=== PATIENT | male | born 1980 | race Caucasian/White ===

== ENCOUNTER 2017-10-26 07:10 | Emergency (ER) | payer MEDICAID ==
[2017-10-26 07:34] LABS: BASOPHILS 0.1 % (0-2); EOSINOPHILS 0.7 % (0-7); HEMATOCRIT 44.7 % (42.0-54.0); HEMOGLOBIN 15.8 g/dL (13.5-17.5); IMMATURE GRANULOCYTES 0.2 % (0-5); LYMPHOCYTES 27.8 % (15-50); MCH 31.3 pg (26.0-34.0); MCHC 35.3 g/dL (31.0-37.0); MCV 88.7 fL (80.0-100.0); MEAN PLATELET VOLUME 9.6 fL (7.4-10.4); MONOCYTES 8.9 % (2-11); NEUTROPHILS 62.3 % (40-80); PLATELET COUNT 210 10x3/uL (130-400); RBC 5.04 10x6/uL (4.20-6.10); RDW 12.8 % (11.5-14.5); WBC 8.3 10x3/uL (4.8-10.8)
[2017-10-26 07:51] LABS: ALBUMIN 3.7 g/dL (3.4-5.0); ALKALINE PHOSPHATASE 88 U/L (46-116); ALT (SGPT) 23 U/L (10-68); CALC OSMOLALITY 279 mosm/kg (275-300); CALCIUM 8.3 mg/dL (8.5-10.1); CARBON DIOXIDE 27.6 mmol/L (21.0-32.0); CHLORIDE - SERUM 105 mmol/L (98-107); GLUCOSE 105 mg/dL (74-106); POTASSIUM - SERUM 3.8 mmol/L (3.5-5.1); PROTEIN - SERUM 6.8 g/dL (6.4-8.2); SODIUM 141 mmol/L (136-145); UREA NITROGEN 11 mg/dL (7-18); eGFR NON AFRICAN AMERICAN 89 mL/min (90-120)
[2017-10-26 08:13] LABS: C-REACTIVE PROTEIN 0.6 mg/dL (0.0-0.9); CREATINE KINASE 69 UL (21-232); MAGNESIUM - SERUM 1.9 mg/dL (1.8-2.4); TROPONIN-I < 0.017 ng/mL (0.000-0.060)
== END 2017-10-26 10:05 | disposition home or self-care (01) ==
LOC: D.ER 07:10
PROVIDERS: Emergency Medicine
DX: R55 Syncope and collapse (principal); F17.200 Nicotine dependence, unspecified, uncomplicated; R00.1 Bradycardia, unspecified

== ENCOUNTER → 2017-11-07 08:56 | Outpatient (CLI) | payer MEDICAID ==
--- NOTE | ~2017-11-07 | EC ---
PATIENT:AURY MARIE DATE OF SERVICE: 11/07/17 SEX: M MEDICAL RECORD: [id number] DATE OF : [birth year] LOCATION:[facility] AGE OF PATIENT: 37 ADMISSION DATE: 11/07/17 REFERRING PHYSICIAN: INTERPRETING PHYSICIAN: YAJAIRA THOMPSON MD ECHOCARDIOGRAM REPORT ECHO CHARGES 4 ECHO COMPLETE CLINICAL DIAGNOSIS: SYNCOPE,CHEST PAIN,PALPITATIONS ECHOCARDIOGRAPHIC MEASUREMENTS (adult normal given) AC root (d.<3.7cm) 3.3 cm LV Septum d (<1.2 cm> 1.5 cm Valve Excursion 2.0 cm LV Septum (systole) 1.7 cm Left Atria (s.<4.0cm> 3.7 cm LVPW d(<1.2cm) 1.6 cm RV (d.<2.3cm) 3.5 cm LVPW (sytole) 1.8 cm LV diastole(<5.6CM) 4.7 cm MV E-F(>70mm/sec) cm LV systole 3.3 cm LVOT Diameter 1.9 cm MV exc.(>10mm) 2.3 cm Est.ejection fraction (50-75%) % Pericardial Effusion N DOPPLER: LVIT cm/sec A 58.0 cm/sec E 100 cm/sec LA cm/sec RVSP 40 mmHg LVOT 135 cm/sec AOP1/2T m/s Asc. Ao 159 cm/sec RVOT 73 cm/sec RA cm/sec PA 104 cm/sec AV Gradient Peak 10.06mmHg AV Mean 4.57 mmHg AV Area 2.6 cm MV Gradient Peak 4.23 mmHg MV Mean 1.40 mmHg MV Area cm COMMENTS: Workers Compensation Consultant: 2 RADHA MENSAH Business Administration Program Chair: 4 Dr. Thompson TAPE# PACS DATE OF SERVICE: 11/07/2017 PROCEDURE: Transthoracic echocardiogram. FINDINGS: 1. Left ventricle shows evidence of mild concentric left ventricular hypertrophy. Inflow characteristics; however, normal. The patient has normal left atrial size and function. 2. The mitral valve appears to be grossly normal with no significant regurgitation. ECHOCARDIOGRAM REPORT [id number] AURY MARIE 3. The aortic valve appears to be structurally normal and functionally normal. 4. The tricuspid valve has mild tricuspid regurgitation with normal right ventricular systolic pressures. 5. The pulmonic valve has trace pulmonic insufficiency. 6. The right atrium is mildly enlarged. 7. The right ventricle is mildly enlarged. CONCLUSIONS: The patient has overall normal echocardiogram. However, there is some evidence of left ventricular hypertrophy. TRANSINT:[id number] Voice Confirmation ID: [id number] DOCUMENT ID: [id number] YAJAIRA THOMPSON MD at 1111 CC: [id number] DICTATION DATE: 11/08/17812 DIESEL MOTOR MECHANIC: 11/08/17 0830 DEP CLI 11/07/[address] [address]
== END | disposition home or self-care (01) ==
LOC: D.ECHO 08:56
DX: R55 Syncope and collapse (principal); R07.9 Chest pain, unspecified; R07.2 Precordial pain; R00.2 Palpitations

== ENCOUNTER → 2017-11-13 16:50 | Outpatient (CLI) | payer MEDICAID ==
[2017-11-13 17:51] LABS: ALBUMIN 4.3 g/dL (3.4-5.0); ALKALINE PHOSPHATASE 96 U/L (46-116); ALT (SGPT) 27 U/L (10-68); BILIRUBIN - TOTAL 0.58 mg/dL (0.2-1.3); CALC OSMOLALITY 258 mosm/kg (275-300); CALCIUM 8.8 mg/dL (8.5-10.1); CARBON DIOXIDE 26.9 mmol/L (21.0-32.0); CHLORIDE - SERUM 107 mmol/L (98-107); GLUCOSE 94 mg/dL (74-106); POTASSIUM - SERUM 4.2 mmol/L (3.5-5.1); PROTEIN - SERUM 7.5 g/dL (6.4-8.2); SODIUM 129 mmol/L (136-145); T4 THYROXIN - FREE 1.08 ng/dL (0.76-1.46); THYROID STIMULATING HORMONE 0.85 uIU/mL (0.36-3.74); UREA NITROGEN 12 mg/dL (7-18); eGFR NON AFRICAN AMERICAN 89 mL/min (90-120)
== END | disposition home or self-care (01) ==
LOC: D.LABREF 16:50
PROVIDERS: Internal Medicine Cardiovascular Disease
DX: R55 Syncope and collapse (principal)

== ENCOUNTER 2019-03-26 23:13 | Emergency (ER) | payer MEDICAID ==
[~2019-03-26] VITALS: Ht 167.6 cm; Wt 95.5 kg
[2019-03-26 23:16] VITALS: Ht 167.6 cm; Wt 95.5 kg
[2019-03-26] MEDS ORDERED: HYDROCODON-ACE1 EA10 PO (23:17)
[2019-03-26] MEDS ORDERED: MIGRAINE (23:17)
[2019-03-27] MEDS ORDERED: ESGIC TABLET1 TAB PO (00:30)
[2019-03-27 01:48] VITALS: BP 128/76
== END 2019-03-27 01:48 | disposition home or self-care (01) ==
LOC: D.ER 23:13
DX: G43.909 Migraine, unspecified, not intractable, without status migrainosus (principal)

== ENCOUNTER 2019-10-13 22:06 | Emergency (ER) | payer MEDICAID ==
[~2019-10-13] VITALS: Ht 167.6 cm; Wt 90.9 kg
[~2019-10-13 22:06] MED LIST: ESGIC TABLET1 TAB PO; HYDROCODON-ACE1 EA10 PO; MIGRAINE
[2019-10-13 22:12] VITALS: Ht 167.6 cm; Wt 90.9 kg
[2019-10-13 23:03] LABS: BASOPHILS 0.2 % (0-2); EOSINOPHILS 0.2 % (0-7); HEMATOCRIT 50.4 % (42.0-54.0); HEMOGLOBIN 18.5 g/dL (13.5-17.5); IMMATURE GRANULOCYTES 0.2 % (0-5); LYMPHOCYTES 18.4 % (15-50); MCH 31.5 pg (26.0-34.0); MCHC 36.7 g/dL (31.0-37.0); MCV 85.9 fL (80.0-100.0); MEAN PLATELET VOLUME 9.6 fL (7.4-10.4); MONOCYTES 16.8 % (2-11); NEUTROPHILS 64.2 % (40-80); PLATELET COUNT 174 10x3/uL (130-400); RBC 5.87 10x6/uL (4.20-6.10); RDW 12.3 % (11.5-14.5); WBC 5.9 10x3/uL (4.8-10.8)
[2019-10-13 23:12] LABS: APTT 34.1 SECONDS (22.8-39.4); INR 0.98 (0.85-1.17)
[2019-10-13 23:13] LABS: CALC OSMOLALITY 272 mosm/kg (275-300); CALCIUM 8.7 mg/dL (8.5-10.1); CARBON DIOXIDE 23.8 mmol/L (21.0-32.0); CHLORIDE - SERUM 99 mmol/L (98-107); CREATININE - SERUM 1.2 mg/dL (0.6-1.3); GLUCOSE 129 mg/dL (74-106); POTASSIUM - SERUM 3.4 mmol/L (3.5-5.1); SODIUM 135 mmol/L (136-145); UREA NITROGEN 14 mg/dL (7-18); eGFR NON AFRICAN AMERICAN 71 mL/min (90-120)
[2019-10-13 23:28] LABS: ALBUMIN 4.1 g/dL (3.4-5.0); ALKALINE PHOSPHATASE 85 U/L (30-120); ALT (SGPT) 33 U/L (10-68); BILIRUBIN - TOTAL 0.38 mg/dL (0.2-1.3); CKMB 0.1 U/L (0.0-3.6); CREATINE KINASE 81 UL (21-232); PROTEIN - SERUM 8.2 g/dL (6.4-8.2)
[2019-10-13 23:30] LABS: TROPONIN-I < 0.017 ng/mL (0.000-0.060)
[2019-10-13] MEDS ORDERED: DURAFLU 325-201 EACH PO (23:50)
[2019-10-13] MEDS ORDERED: TAMIFLU75 MG PO (23:50)
[2019-10-13] MEDS ORDERED: HYDROCODON-ACE1 EA10 PO (23:51)
[2019-10-14 00:24] LABS: APPEARANCE CLEAR (CLEAR); COLOR YELLOW (YELLOW)
[2019-10-14 00:25] LABS: BILIRUBIN NEGATIVE (NEGATIVE); GLUCOSE NEGATIVE (NEGATIVE); KETONE NEGATIVE (NEGATIVE); NITRITE NEGATIVE (NEGATIVE); PROTEIN TRACE mg/dL (NEGATIVE); UROBILINOGEN NORMAL (NORMAL)
[2019-10-14 00:26] LABS: BACTERIA FEW /hpf (NEGATIVE); EPITHELIAL CELLS 0-5 /hpf (0-5); RED CELLS - URINE 0-5 /hpf (0-5); WHITE CELLS - URINE 0-5 /hpf (NEGATIVE)
[2019-10-14 00:30] LABS: UDS - AMPHET NEGATIVE QUAL (NEGATIVE); UDS - BARB NEGATIVE QUAL (NEGATIVE); UDS - BENZO NEGATIVE QUAL (NEGATIVE); UDS - COCAINE NEGATIVE QUAL (NEGATIVE); UDS - OPIATE NEGATIVE QUAL (NEGATIVE); UDS - PCP NEGATIVE QUAL (NEGATIVE); UDS - THC POSITIVE QUAL (NEGATIVE)
[2019-10-14 00:50] VITALS: BP 125/79
== END 2019-10-14 00:50 | disposition home or self-care (01) ==
LOC: D.ER 22:06
PROVIDERS: Emergency Medicine
DX: J11.1 Influenza due to unidentified influenza virus with other respiratory manifestations (principal); G43.909 Migraine, unspecified, not intractable, without status migrainosus; F17.210 Nicotine dependence, cigarettes, uncomplicated

== ENCOUNTER 2019-10-15 22:07 | Emergency (ER) | payer MEDICAID ==
[~2019-10-15] VITALS: Ht 167.6 cm; Wt 77.3 kg
[~2019-10-15 22:07] MED LIST changes: +DURAFLU 325-201 EACH PO; +TAMIFLU75 MG PO
[2019-10-15 22:13] VITALS: Ht 167.6 cm; Wt 77.3 kg
[2019-10-15 22:40] LABS: BASOPHILS 0.5 % (0-2); EOSINOPHILS 0 % (0-7); HEMATOCRIT 47.8 % (42.0-54.0); HEMOGLOBIN 17.6 g/dL (13.5-17.5); IMMATURE GRANULOCYTES 0.2 % (0-5); LYMPHOCYTES 21.1 % (15-50); MCH 31.3 pg (26.0-34.0); MCHC 36.8 g/dL (31.0-37.0); MCV 84.9 fL (80.0-100.0); MEAN PLATELET VOLUME 9.6 fL (7.4-10.4); MONOCYTES 18.1 % (2-11); NEUTROPHILS 60.1 % (40-80); RBC 5.63 10x6/uL (4.20-6.10); RDW 12.3 % (11.5-14.5)
[2019-10-15 22:42] LABS: PLATELET COUNT 122 10x3/uL (130-400); WBC 4.3 10x3/uL (4.8-10.8)
[2019-10-15 22:50] LABS: APTT 34.5 SECONDS (22.8-39.4); INR 0.97 (0.85-1.17); PROTIME 12.8 SECONDS (11.6-15.0)
[2019-10-15 22:51] LABS: D-DIMER-QUANTITATIVE 0.73 ug/mLFEU (0.20-0.54)
[2019-10-15 22:54] LABS: CALC OSMOLALITY 271 mosm/kg (275-300); CALCIUM 8.5 mg/dL (8.5-10.1); CARBON DIOXIDE 22.5 mmol/L (21.0-32.0); CHLORIDE - SERUM 99 mmol/L (98-107); GLUCOSE 114 mg/dL (74-106); POTASSIUM - SERUM 3.9 mmol/L (3.5-5.1); SODIUM 135 mmol/L (136-145); UREA NITROGEN 14 mg/dL (7-18); eGFR NON AFRICAN AMERICAN 88 mL/min (90-120)
[2019-10-15 23:10] LABS: ALBUMIN 3.9 g/dL (3.4-5.0); ALKALINE PHOSPHATASE 76 U/L (30-120); ALT (SGPT) 30 U/L (10-68); BILIRUBIN - TOTAL 0.47 mg/dL (0.2-1.3); CREATINE KINASE 104 UL (21-232); MAGNESIUM - SERUM 1.7 mg/dL (1.8-2.4); PRO BNP 8 pg/mL (0-125); PROTEIN - SERUM 7.9 g/dL (6.4-8.2); TROPONIN-I < 0.017 ng/mL (0.000-0.060)
[2019-10-16] MEDS ORDERED: ALBUTEROL SULF8.5 GM INH (00:50)
[2019-10-16 01:12] VITALS: BP 118/69
== END 2019-10-16 01:14 | disposition home or self-care (01) ==
LOC: D.ER 22:07
PROVIDERS: Family Medicine
DX: R06.02 Shortness of breath (principal); J11.1 Influenza due to unidentified influenza virus with other respiratory manifestations; Z72.0 Tobacco use

== ENCOUNTER 2020-01-07 20:14 | Emergency (ER) | payer MEDICAID ==
[~2020-01-07] VITALS: Ht 167.6 cm; Wt 90.0 kg
[~2020-01-07 20:14] MED LIST changes: +ALBUTEROL SULF8.5 GM INH
[2020-01-07 20:30] VITALS: Ht 167.6 cm; Wt 90.0 kg
[2020-01-07 20:50] LABS: BASOPHILS 0.1 % (0-2); EOSINOPHILS 0.4 % (0-7); HEMOGLOBIN 16.6 g/dL (13.5-17.5); IMMATURE GRANULOCYTES 0.3 % (0-5); LYMPHOCYTES 15.8 % (15-50); MCH 31.2 pg (26.0-34.0); MCHC 34.6 g/dL (31.0-37.0); MCV 90.2 fL (80.0-100.0); MEAN PLATELET VOLUME 9.1 fL (7.4-10.4); MONOCYTES 8.1 % (2-11); NEUTROPHILS 75.3 % (40-80); RBC 5.32 10x6/uL (4.20-6.10); RDW 12.9 % (11.5-14.5); WBC 13.6 10x3/uL (4.8-10.8)
[2020-01-07 20:52] LABS: PLATELET COUNT 240 10x3/uL (130-400)
[2020-01-07 21:01] LABS: CALC OSMOLALITY 274 mosm/kg (275-300); CALCIUM 8.5 mg/dL (8.5-10.1); CARBON DIOXIDE 26.8 mmol/L (21.0-32.0); CHLORIDE - SERUM 101 mmol/L (98-107); CREATININE - SERUM 1.1 mg/dL (0.6-1.3); GLUCOSE 103 mg/dL (74-106); POTASSIUM - SERUM 3.7 mmol/L (3.5-5.1); SODIUM 137 mmol/L (136-145); UREA NITROGEN 14 mg/dL (7-18); eGFR NON AFRICAN AMERICAN 79 mL/min (90-120)
[2020-01-07 21:03] LABS: INR 0.98 (0.85-1.17); PROTIME 12.9 SECONDS (11.6-15.0)
[2020-01-07 21:04] LABS: APTT 30.4 SECONDS (22.8-39.4)
[2020-01-07 21:08] LABS: ALBUMIN 4.1 g/dL (3.4-5.0); ALKALINE PHOSPHATASE 88 U/L (30-120); ALT (SGPT) 23 U/L (10-68); PROTEIN - SERUM 7.9 g/dL (6.4-8.2)
[2020-01-07 22:25] VITALS: BP 136/76
== END 2020-01-07 22:26 | disposition home or self-care (01) ==
LOC: D.ER 20:14
PROVIDERS: Family Medicine
DX: M25.552 Pain in left hip (principal); M25.562 Pain in left knee; W17.89XA Other fall from one level to another, initial encounter; Y93.9 Activity, unspecified; Y92.9 Unspecified place or not applicable

== ENCOUNTER → 2020-03-17 11:10 | Outpatient (CLI) | payer MEDICAID ==
[2020-01-07 20:30] VITALS: BMI 32.0
== END | disposition home or self-care (01) ==
LOC: D.MRI 11:10
PROVIDERS: ATTEND Orthopaedic Surgery
DX: S82.102A Unspecified fracture of upper end of left tibia, initial encounter for closed fracture (principal)

== ENCOUNTER 2020-05-07 06:00 | Day surgery (SDC) | payer MEDICAID ==
[~2020-05-07] VITALS: Ht 167.6 cm; Wt 93.4 kg
[2020-05-07 07:27] VITALS: BP 127/88; Ht 167.6 cm; Wt 93.4 kg
[2020-05-07] MEDS ORDERED: PERCOCET 10-321 EAC1 PO (10:54)
--- NOTE | 2020-05-07 13:11 | NUR ---
1305 PT REPORTS A SHARP STABBING SENSATION, INTERMITTENTLY, NOT CONTROLLED BY PERCOCET. MOLD MAKER HELPER HAS CONSULTED AND WILL BE AUGMENTING NERVE BLOCK. PT TOLERATED WELL.
--- NOTE | 2020-05-07 13:22 | NUR ---
1320 PT REPORTS PAIN 0/10 NOW. LLE WITH +CIRCULATION, WRIGGLES TOES, RPORTS NUMBNESS. BRACE IN PLACE. IV D/C'D WITH CANNULA INTACT, PRESSURE HELD, AND DRS PLACED. DISCHARGE INSTRUCTIONS GIVEN AND PT AND VERBALIZED AN UNDERSTANDING.
--- NOTE | 2020-05-11 08:46 | OP ---
PATIENT NAME: AURY MARIE MEDICAL RECORD: [id number] :78 LOCATION[facility] ADMISSION DATE: SURGEON: FREDY GOLDSTEIN MD DATE OF OPERATION: 05/07/2020 PREOPERATIVE DIAGNOSIS: Tibial plateau fracture of the left knee - lateral. POSTOPERATIVE DIAGNOSIS: Tibial plateau fracture of the left knee - lateral. PROCEDURES: 1. X-ray guided subchondroplasty of the lateral tibial plateau fracture - ORIF. 2. Diagnostic arthroscopy of the left knee. SURGEON: Fredy Goldstein MD ANESTHESIA: General. INTRAOPERATIVE COMPLICATIONS: None. SUMMARY OF PATHOLOGIC FINDINGS: Fortunately, the patient had a relatively pristine knee. The questionable lateral meniscus tear on MRI was not torn after probing and the area of the lateral tibial plateau fracture was filled with the Biomet subchondroplasty set. OPERATIVE SUMMARY IN DETAIL: After obtaining the appropriate preoperative orthopedic surgery consent as well as anesthetic consultation, evaluation and clearance, the patient was brought to the operating room and placed on the operating table in supine position. After general laryngeal mask airway was administered, tourniquet was placed about the proximal aspect of left lower extremity. Left lower extremity was then prepped and draped in routine sterile fashion. The leg was elevated and exsanguinated, tourniquet was inflated to 350 mmHg. At this point, the appropriate timeout was taken and agreed upon by all given the patient's unique identifiers. The inferior lateral portal was established followed by the superomedial portal and inferomedial portal. Diagnostic arthroscopy did not show any evidence of meniscal pathology medially or laterally. The ACL was intact and all chondral surfaces were smooth and glistening. Having completed this, a C-arm was brought in and then under direct C-arm visualization with MRI guidance, the trocar for the Biomet subchondroplasty kit was placed in the most medial aspect of the lateral tibial plateau fracture and then very slowly the subchondroplasty was performed from the most medial part of the lateral tibial plateau fracture to the lateral aspect with the filling holes staying beneath the cortex. Having completed this, final radiographs were taken and submitted for radiologist review. The delivery needle was left for the entire 10 minutes to assure that there would be no extrusion. Having completed this, arthroscopy portals were closed in routine interrupted fashion using 4-0 Prolene. A bandage was applied over the trocar site laterally. Sterile dressings were applied. Tourniquet was deflated. The patient was awakened and taken to the recovery room in stable condition. All final needle and sponge counts were correct. TRANSINT:[id number] Voice Confirmation ID: [id number] DOCUMENT ID: [id number] OPERATIVE REPORT [id number] AURY MARIE MD, FREDY ONEAL at 0846 CC: [id number] DICTATION DATE: 05/07/20 1101 HELP DESK OPERATOR: 05/07/20 1231 [facility] [place] 05/07/[address] [address]
== END 2020-05-07 13:24 | disposition home or self-care (01) ==
LOC: D.OPS 06:00
PROVIDERS: ATTEND Orthopaedic Surgery
DX: S82.102A Unspecified fracture of upper end of left tibia, initial encounter for closed fracture (principal); X58.XXXA Exposure to other specified factors, initial encounter; M25.562 Pain in left knee

== ENCOUNTER 2020-06-03 02:01 | Emergency (ER) | payer MEDICAID ==
[~2020-06-03] VITALS: Ht 167.6 cm; Wt 92.3 kg
[~2020-06-03 02:01] MED LIST changes: +PERCOCET 10-321 EAC1 PO
[2020-06-03 02:06] VITALS: BP 140/78; Ht 167.6 cm; Wt 92.3 kg
[2020-06-03] MEDS ORDERED: PERCOCET 10-321 EAC1 PO (03:01)
[2020-06-04] MEDS ORDERED: HYDROCODON-ACE1 EA10 PO (11:19)
== END 2020-06-03 02:55 | disposition home or self-care (01) ==
LOC: D.ER 02:01
DX: S63.055A Dislocation of other carpometacarpal joint of left hand, initial encounter (principal); S62.318A Displaced fracture of base of other metacarpal bone, initial encounter for closed fracture; X58.XXXA Exposure to other specified factors, initial encounter; M79.642 Pain in left hand; M54.9 Dorsalgia, unspecified; F17.210 Nicotine dependence, cigarettes, uncomplicated

== ENCOUNTER 2020-06-04 08:08 | Day surgery (SDC) | payer MEDICAID ==
[~2020-06-04] VITALS: Ht 167.6 cm; Wt 93.4 kg
[2020-06-04 08:29] LABS: HEMATOCRIT 47.1 % (42.0-54.0); HEMOGLOBIN 16.2 g/dL (13.5-17.5); MCHC 34.4 g/dL (31.0-37.0); MCV 90.2 fL (80.0-100.0); MEAN PLATELET VOLUME 9.1 fL (7.4-10.4); RBC 5.22 10x6/uL (4.20-6.10); WBC 7.8 10x3/uL (4.8-10.8)
[2020-06-04 09:36] VITALS: Ht 167.6 cm; Wt 93.4 kg
[2020-06-04] MEDS ORDERED: HYDROCODON-ACE1 EA10 PO (11:19)
--- NOTE | 2020-06-04 13:03 | OP ---
PATIENT NAME: AURY MARIE MEDICAL RECORD: [id number] :78 LOCATION:[facility] ADMISSION DATE: SURGEON: FREDY GOLDSTEIN MD DATE OF OPERATION: 06/04/2020 PREOPERATIVE DIAGNOSIS: Carpometacarpal fracture dislocation of left hand fifth, fourth and third digit. POSTOPERATIVE DIAGNOSIS: Carpometacarpal fracture dislocation of left hand fifth, fourth and third digit. PROCEDURE: Closed reduction and percutaneous pinning of left hand fracture dislocation, fifth; closed reduction percutaneous pinning, left hand fourth finger; then closed reduction percutaneous pinning, left hand third finger. SURGEON: Fredy Goldstein MD MESSAGE AND DELIVERY SERVICE PRICER: NAHID Wise INTRAOPERATIVE COMPLICATIONS: None. SUMMARY OF PATHOLOGIC FINDINGS: The patient indeed had exactly what was thought to be on the CT scan that is a true dislocation of the fifth finger, fracture dislocation of the fourth finger and a fracture with slight displacement of the third finger, all at the CMC joint, none intraarticular, very amenable to closed reduction and percutaneous pinning. OPERATIVE SUMMARY IN DETAIL: After obtaining the appropriate preoperative orthopedic surgery consent as well as anesthetic consultation, evaluation and clearance, the patient was brought to the operating room and placed on the operating table in supine position. After adequate general laryngeal mask was administered, tourniquet was placed on the proximal aspect of the left upper extremity. Left upper extremity was then prepped and draped in routine sterile fashion. The arm was elevated and exsanguinated. Tourniquet was inflated to 250 mmHg. At this point, the appropriate timeout was taken and agreed upon by all given the patient's unique identifiers. Under fluoroscopic guidance, the fracture dislocations at 3 were reduced. Further reduction was needed to be sure the alignment of the fourth CMC fracture dislocation was in good position and indeed after further reduction it lined up anatomically. At this point 0.062 K-wires were driven across the CMC joints of all 3 of the fracture dislocations resulting in excellent stabilization. Final radiographs in triplicate were submitted for radiologist review. Relaxing incisions were made about the pins. These were then closed with 4-0 nylon. The wires were then bent for protection. Sterile dressings were applied. The tourniquet was deflated and a volar splint was applied. The patient was then awakened and taken to the recovery room in stable condition. All final needle and sponge counts were correct. TRANSINT:[id number] Voice Confirmation ID: [id number] DOCUMENT ID: [id number] OPERATIVE REPORT [id number] AURY MARIE MD, FREDY ONEAL at 1303 CC: [id number] DICTATION DATE: 06/04/20 112 TRIM OPERATOR: 06/04/20 1228 [facility] [address] [id number]
--- NOTE | 2020-06-04 15:25 | NUR ---
1305 IV REMOVED AND PRESSURE HELD.
== END 2020-06-04 13:30 | disposition home or self-care (01) ==
LOC: D.OPS 08:08 → D.SP 08:08 → D.OPS 10:30 → D.PAN 10:30 → D.OPS 13:30 → D.CT 14:00
PROVIDERS: Anesthesiology; ATTEND Orthopaedic Surgery
DX: M25.562 Pain in left knee (principal); M79.642 Pain in left hand; S63.055A Dislocation of other carpometacarpal joint of left hand, initial encounter; S62.141A Displaced fracture of body of hamate [unciform] bone, right wrist, initial encounter for closed fracture; X58.XXXA Exposure to other specified factors, initial encounter

== ENCOUNTER 2020-06-06 23:22 | Emergency (ER) | payer MEDICAID ==
[~2020-06-06] VITALS: Ht 167.6 cm; Wt 92.3 kg
[2020-06-06 23:37] VITALS: Ht 167.6 cm; Wt 92.3 kg
[2020-06-07 01:42] VITALS: BP 134/89
== END 2020-06-07 01:47 | disposition home or self-care (01) ==
LOC: D.ER 23:22
DX: M79.642 Pain in left hand (principal); G89.18 Other acute postprocedural pain; S69.92XA Unspecified injury of left wrist, hand and finger(s), initial encounter; X58.XXXA Exposure to other specified factors, initial encounter; F17.210 Nicotine dependence, cigarettes, uncomplicated

== ENCOUNTER → 2020-06-23 08:04 | Outpatient (CLI) | payer MEDICAID ==
[2020-06-06 23:37] VITALS: BMI 32.8
== END | disposition home or self-care (01) ==
LOC: D.MRI 08:04
PROVIDERS: ATTEND Orthopaedic Surgery
DX: S82.145D Nondisplaced bicondylar fracture of left tibia, subsequent encounter for closed fracture with routine healing (principal)

== ENCOUNTER → 2020-11-18 07:32 | Outpatient (CLI) | payer MEDICAID ==
[2020-08-31 12:24] VITALS: BMI 32.0
[~2020-11-18 07:32] MED LIST changes: +ISOSORBIDE DINI30 MG PO; +ISOSORBIDE MONO30 M1 PO
== END | disposition home or self-care (01) ==
LOC: D.MRI 10-28 09:00
PROVIDERS: ATTEND Clinical Nurse Specialist Family Health
DX: M54.16 Radiculopathy, lumbar region (principal)

== ENCOUNTER → 2020-11-24 12:29 | Outpatient (CLI) | payer MEDICAID ==
[2020-08-31 12:24] VITALS: BMI 32.0
== END | disposition home or self-care (01) ==
LOC: D.CT 12:29
PROVIDERS: ATTEND Clinical Nurse Specialist Family Health
DX: S82.102A Unspecified fracture of upper end of left tibia, initial encounter for closed fracture (principal)